=== PATIENT | male | born 1950 ===

== ENCOUNTER 2020-10-15 06:23 | Day surgery (SDC) | payer OTHER | END 2020-10-15 12:45 | disposition home or self-care (01) | LOC: AMB-ENDOS 06:23 | PROVIDERS: ATTEND Surgery | DX: D12.4 Benign neoplasm of descending colon (principal); D12.5 Benign neoplasm of sigmoid colon; D17.5 Benign lipomatous neoplasm of intra-abdominal organs; Z20.828 Contact with and (suspected) exposure to other viral communicable diseases ==